=== PATIENT | female | born 1945 | race Native Hawaiian/Other Pacific Islander ===

== ENCOUNTER 2018-11-29 07:08 | Outpatient (CLI) | payer OTHER | END 2018-11-29 07:09 | disposition home or self-care (01) | LOC: C.LAB 07:08 | DX: E11.65 Type 2 diabetes mellitus with hyperglycemia (principal); E78.2 Mixed hyperlipidemia; E23.1 Drug-induced hypopituitarism ==

== ENCOUNTER 2019-02-07 07:18 | Outpatient (CLI) | payer OTHER | END 2019-02-07 07:19 | disposition home or self-care (01) | LOC: C.LAB 07:18 | DX: E11.65 Type 2 diabetes mellitus with hyperglycemia (principal); E78.2 Mixed hyperlipidemia ==